=== PATIENT | male | born 1930 | race Caucasian/White ===

== ENCOUNTER → 2020-11-10 | Outpatient (CLI) | payer MEDICARE, BC | LOC: HEART 5 13:53 | DX: I48.0 Paroxysmal atrial fibrillation (principal); I47.2 Ventricular tachycardia; I08.0 Rheumatic disorders of both mitral and aortic valves | CPT/HCPCS: 93306 ==

== ENCOUNTER → 2020-12-13 | Outpatient (CLI) | payer MEDICARE, BC ==
[2020-12-13 14:45] LABS: HEMOGLOBIN 13.4 gm/dl (14.0-17.5); RED BLOOD COUNT 4.48 M/UL (4.20-5.50); WHITE BLOOD COUNT 6.1 K/UL (4.5-11.0)
== END ==
LOC: LAB 13:03
PROVIDERS: Nurse Practitioner
DX: Z12.5 Encounter for screening for malignant neoplasm of prostate (principal); N30.01 Acute cystitis with hematuria; Z79.01 Long term (current) use of anticoagulants
CPT/HCPCS: 36415; 80053; 85025; 85610; G0103

== ENCOUNTER 2021-01-30 20:36 | Inpatient (IN) | payer MEDICARE, BC ==
[~2021-01-30] VITALS: Ht 170.2 cm; Wt 78.9 kg
[2021-01-30 21:09] LABS: HEMOGLOBIN 12.9 gm/dl (14.0-17.5); RED BLOOD COUNT 4.1 M/UL (4.20-5.50); WHITE BLOOD COUNT 6.5 K/UL (4.5-11.0)
[2021-01-30] MEDS ORDERED: FINASTERIDE5 MG PO (23:50)
[2021-01-30] MEDS ORDERED: ASPIRIN81 MG PO (23:50)
[2021-01-30] MEDS ORDERED: LEVOTHYROXINE112 MC1 PO (23:51)
[2021-01-30] MEDS ORDERED: LASIX 40 MG TAB40 MG PO (23:51)
[2021-01-30] MEDS ORDERED: PROTONIX20 MG PO (23:52)
[2021-01-30] MEDS ORDERED: BETAPACE80 MG PO (23:53)
[2021-01-30] MEDS ORDERED: WARFARIN SODIUM3 MG PO (23:54)
[2021-01-30] MEDS ORDERED: SIMVASTATIN20 MG PO (23:54)
[2021-01-30] MEDS ORDERED: WARFARIN SODIUM1 MG PO (23:55)
[2021-01-31 06:11] LABS: BUN/CREATININE RATIO 18 (0-10)
[2021-01-31 07:11] LABS: HEMOGLOBIN 12.1 gm/dl (14.0-17.5); RED BLOOD COUNT 3.89 M/UL (4.20-5.50); WHITE BLOOD COUNT 5.8 K/UL (4.5-11.0)
[2021-01-31] MEDS ORDERED: HYDROCODON-ACE1 EAC4 PO (13:01)
[2021-01-31] MEDS ORDERED: LEVOFLOXACIN500 MG PO (13:01)
[2021-01-31] MEDS ORDERED: CLINDAMYCIN HC300 MG PO (13:01)
== END 2021-01-31 17:16 | disposition home or self-care (01) | DRG 259 ==
LOC: ER1 20:36 → CDU 22:29 → MED SURG 4 01-31 13:27
PROVIDERS: Emergency Medicine; ADMIT Internal Medicine
PROC: 0JPT0PZ Removal of Cardiac Rhythm Related Device from Trunk Subcutaneous Tissue and Fascia, Open Approach (ICD-10-PCS; principal; 2021-01-31)
PROC: 4A0274Z Measurement of Cardiac Electrical Activity, Via Natural or Artificial Opening (ICD-10-PCS; 2021-01-31)
PROC: 0JH606Z Insertion of Pacemaker, Dual Chamber into Chest Subcutaneous Tissue and Fascia, Open Approach (ICD-10-PCS; 2021-01-31)
DX: T82.191A Other mechanical complication of cardiac pulse generator (battery), initial encounter (principal); I13.0 Hypertensive heart and chronic kidney disease with heart failure and stage 1 through stage 4 chronic kidney disease, or unspecified chronic kidney disease; N17.9 Acute kidney failure, unspecified; R00.1 Bradycardia, unspecified; Z20.822 Contact with and (suspected) exposure to COVID-19; I49.5 Sick sinus syndrome; K59.09 Other constipation; I50.9 Heart failure, unspecified; N18.30 Chronic kidney disease, stage 3 unspecified; N40.0 Benign prostatic hyperplasia without lower urinary tract symptoms; I48.0 Paroxysmal atrial fibrillation; E03.9 Hypothyroidism, unspecified; Y83.8 Other surgical procedures as the cause of abnormal reaction of the patient, or of later complication, without mention of misadventure at the time of the procedure; Z95.0 Presence of cardiac pacemaker; Z79.01 Long term (current) use of anticoagulants; Z79.82 Long term (current) use of aspirin; Z79.899 Other long term (current) drug therapy; Z90.49 Acquired absence of other specified parts of digestive tract
CPT/HCPCS: 33213; 36415; 71045; 80048; 80053; 81001; 82436; 82550; 82553; 82570; 82728; 83735; 83874; 83880; 83935; 84100; 84156; 84300; 84439; 84443; 84484; 84550; 85025; 85610; 85652; 85730; 86140; 93005; 96374; 99152; 99153; 99285; C1785; G0378; J1940; J2250; J3010; J3370; J7040; J7050; U0002

== ENCOUNTER → 2021-03-04 | Outpatient (CLI) | payer MEDICARE, BC ==
[~2021-03-04] MED LIST: ASPIRIN81 MG PO; BETAPACE80 MG PO; CLINDAMYCIN HC300 MG PO; FINASTERIDE5 MG PO; HYDROCODON-ACE1 EAC4 PO; LASIX 40 MG TAB40 MG PO; LEVOFLOXACIN500 MG PO; LEVOTHYROXINE112 MC1 PO; PROTONIX20 MG PO; SIMVASTATIN20 MG PO; WARFARIN SODIUM1 MG PO; WARFARIN SODIUM3 MG PO
== END ==
LOC: EXRD 14:04
DX: R60.0 Localized edema (principal); G60.3 Idiopathic progressive neuropathy; I73.89 Other specified peripheral vascular diseases
CPT/HCPCS: 93925; 93970

== ENCOUNTER → 2021-06-17 | Outpatient (CLI) | payer MEDICARE, BC | LOC: LAB 07:48 | PROVIDERS: Emergency Medicine | DX: I10 Essential (primary) hypertension (principal); R60.0 Localized edema; E78.2 Mixed hyperlipidemia; E03.8 Other specified hypothyroidism; I48.21 Permanent atrial fibrillation | CPT/HCPCS: 36415; 80053 ==